=== PATIENT | male | born 1965 ===

== ENCOUNTER 2024-01-06 11:10 | Day surgery (SDC) | payer OTHER ==
[~2024-01-06] VITALS: Ht 175.3 cm; Wt 92.6 kg
[~2024-01-06 11:10] MED LIST: Lactated Ringer's 1,000 ML IV ONE; propofoL 50 ML IV ONE
[2024-01-06] MEDS ORDERED: ZOCOR20 MG (11:24)
[2024-01-06] MEDS ORDERED: Lactated Ringer's 1,000 ML IV ONE ×2 (11:58→11:59)
[2024-01-06 14:02] VITALS: BP 106/84
== END 2024-01-06 14:09 | disposition home or self-care (01) ==
LOC: ORSCSDS 11:10
PROVIDERS: Internal Medicine Gastroenterology
PROC: 0DJD8ZZ Inspection of Lower Intestinal Tract, Via Natural or Artificial Opening Endoscopic (ICD-10-PCS; principal; 2024-01-06 12:15)
DX: Z12.11 Encounter for screening for malignant neoplasm of colon (principal); Z86.010 Personal history of colon polyps
CPT/HCPCS: J2704; J7120